=== PATIENT | female | born 1985 ===

== ENCOUNTER 2025-02-01 18:00 | Observation (INO) ==
[2025-02-01] MEDS ORDERED: PROMETHAZINE 25 MG/ML VIAL IV PRN (20:16)
[2025-02-01] MEDS ORDERED: ONDANSETRON 4 MG/2 ML VIAL IV PRN (20:16)
[2025-02-01] MEDS: SENNOSIDES 1 TABLET PO SCH (21:49)
[2025-02-01] MEDS: DOCUSATE SODIUM 100 MG CAPSULE PO SCH (21:49)
[2025-02-01] MEDS: 0.9 % SODIUM CHLORIDE 1,000 ML IV SCH (21:49)
[2025-02-01] MEDS: FAMOTIDINE/PF 20 MG/2 ML VIAL IV SCH (21:49)
[2025-02-01] MEDS: PIPERACILLIN SODIUM/TAZOBACTAM 3.375 GM in DEXTROSE 5% IN WATER 100 ML IV SCH (21:49)
[2025-02-01] MEDS: 0.9 % SODIUM CHLORIDE 10 ML SYRINGE IV SCH (21:50)
[2025-02-01 22:08] LABS: Bacteria,Urine Mod /hpf (0); Bilirubin,Urine Color Interference mg/dL (Negative); Color,Urine Brown; Glucose,Urine (UA) Negative (Negative); Ketones,Urine Color Interference mg/dL (Negative); Leukocyte Esterase,Urine Negative /uL (Negative); PH,Urine 5.5 (5.0-9.0); Protein,Urine Color Interference mg/dL (Negative); Specific Gravity,Urine 1.025 (1.000-1.035); Urobilinogen,Urine Normal
[2025-02-02 06:27] LABS: Hematocrit 36.4 % (34.1-44.9); Hemoglobin 12.0 g/dL (11.2-15.7); Mean Corpuscular HGB Conc 33.0 g/dL (31.0-36.0); Platelet Count 266 K/mcL (140-440); RBC 3.77 M/mcL (3.59-5.38); WBC 15.5 K/mcL (4.5-11.0)
[2025-02-02 07:08] LABS: ALT/SGPT 8 U/L (<40); AST/SGOT 11 U/L (<32); Albumin 3.4 gm/dL (3.2-5.2); Albumin/Globulin Ratio 1.4 (1.0-2.3); Alkaline Phosphatase 28 U/L (39-117); Anion Gap 11.0 (8.0-16.0); Bilirubin,Total 0.7 mg/dL (0.1-1.0); Blood Urea Nitrogen 7 mg/dL (6-20); Calcium 7.8 mg/dL (8.6-10.4); Carbon Dioxide 19 mmol/L (22-30); Chloride 105 mmol/L (96-108); Globulin 2.4 gm/dL (2.2-3.7); Glucose 102 mg/dL (70-105); Potassium 3.4 mmol/L (3.3-5.1); Sodium 135 mmol/L (133-145)
[2025-02-02] MEDS: ENOXAPARIN 40 MG/0.4 ML SYRINGE SQ SCH (07:22)
[2025-02-02] MEDS ORDERED: PROPOFOL 200 MG/20 ML VIAL IV ONE (07:42)
[2025-02-02] MEDS ORDERED: fentaNYL 100 MCG/2 ML VIAL ONE (07:42)
[2025-02-02] MEDS ORDERED: LIDOCAINE 2% PF 5 ML VIAL ONE (07:44)
[2025-02-02] MEDS ORDERED: FAMOTIDINE/PF 20 MG/2 ML VIAL IV ONE (07:44)
[2025-02-02] MEDS ORDERED: ONDANSETRON 4 MG/2 ML VIAL ONE (07:44)
[2025-02-02] MEDS ORDERED: SUCCINYLCHOLINE 200 MG/10 ML VIAL IV ONE (07:44)
[2025-02-02] MEDS ORDERED: MAGNESIUM SULFATE 2 GM/50 ML BAG IV ONE (07:44)
[2025-02-02] MEDS ORDERED: GLYCOPYRROLATE 0.2 MG/ML VIAL IV ONE (07:44)
[2025-02-02] MEDS ORDERED: ROCURONIUM 10 MG/ML ML IV ONE (07:44)
[2025-02-02] MEDS ORDERED: DEXAMETHASONE 10 MG/ML VIAL ONE (07:44)
[2025-02-02] MEDS ORDERED: SUGAMMADEX SODIUM 200 MG/2 ML VIAL IV ONE (08:12)
[2025-02-02] MEDS ORDERED: HYDROmorphone 0.5 MG/0.5 ML SYRINGE ONE (08:12)
[2025-02-02] MEDS ORDERED: KETOROLAC 30 MG/ML VIAL ONE (08:19)
[2025-02-02] MEDS ORDERED: METHOCARBAMOL 1,000 MG/10 ML VIAL IV PRN (08:38)
[2025-02-02] MEDS ORDERED: NALOXONE HCL 0.4 MG/ML VIAL IV PRN (08:38)
[2025-02-02] MEDS ORDERED: LACTATED RINGERS 250 ML IV PRN (08:38)
[2025-02-02] MEDS ORDERED: BENZOCAINE/MENTHOL 1 LOZENGE PO PRN (08:38)
[2025-02-02] MEDS ORDERED: MEPERIDINE 25 MG/ML VIAL IV PRN (08:38)
[2025-02-02] MEDS ORDERED: IPRATROPIUM/ALBUTEROL 3 ML AMPUL.NEB NEB PRN (08:38)
[2025-02-02] MEDS ORDERED: ONDANSETRON 4 MG/2 ML VIAL IV PRN (08:38)
[2025-02-02] MEDS ORDERED: HYDROmorphone 0.5 MG/0.5 ML SYRINGE IV PRN (08:38)
[2025-02-02] MEDS ORDERED: fentaNYL 100 MCG/2 ML VIAL IV PRN (08:38)
[2025-02-02] MEDS: LACTATED RINGERS 1,000 ML IV SCH (08:45)
[2025-02-02] MEDS: BUPIVACAINE W/EPI 0.25% 50 ML VIAL IJ ONE (08:52)
[2025-02-02] MEDS: ACETAMINOPHEN 1,000 MG/100 ML BAG IV ONE (09:07)
[2025-02-02 09:17] LABS: RBC Morphology NORMAL (Normal)
[2025-02-02] MEDS: KETOROLAC 30 MG/ML VIAL IV PRN (17:39)
== END 2025-02-02 18:15 | disposition home or self-care (01) ==
LOC: MEDSUR
PROVIDERS: ADMIT Surgery; ATTEND Surgery
PROC: LAPAPPY (ICD-10-PCS; 2025-02-02 08:00)